=== PATIENT | female | born 1950 | race Caucasian/White ===

== ENCOUNTER 2018-05-24 09:05 | Emergency (ER) | payer MEDICARE, MEDICAID ==
--- NOTE | 2018-05-24 09:11 | Emergency Department Record ---
History of Present Illness - General Chief complaint: Pain Stated complaint: SLIPPED Time Seen by Provider: 05/24/18 09:08 Source: Patient Mode of Arrival: EMS Limitations: No limitations - History of Present Illness Initial comments: The patient was walking at [facility] with her walker and slipped and fell down onto her L hip. She denies hitting her head or any NOLAN, LOC, neck or back pain. She did possibly bump her R arm but that is not painful. Her only complaint is mild L hip pain. MD Complaint: Extremity pain Onset/Timin -: Minutes(s) - Related Data Home Medications Medication Instructions Recorded Confirmed Last Taken Albuterol Sulfate [Proair Hfa] 1 - 2 puff IH .EVERY 4-6 HOURS PRN 05/24/1805/24 Unknown Alendronate Sodium 70 mg PO WEEKLY 05/24/18 05/24/18 Unknown Apixaban [Eliquis] 2.5 mg PO BID 05/24/18 05/24/18 Unknown Ascorbic Acid [Vitamin C] 250 mg PO DAILY 05/24/18 05/24/18 Unknown Biotin 5,000 mcg PO DAILY 05/24/18 05/24/18 Unknown Clonazepam [Klonopin] 1 mg PO QHS 05/24/18 05/24/18 Unknown Clopidogrel Bisulfate [Clopidogrel] 75 mg PO DAILY 05/24/18 05/24/18 Unknown Esomeprazole Magnesium [Nexium] 20 mg PO DAILY 05/24/18 05/24/18 Unknown Gabapentin [Neurontin] 600 mg PO TID 05/24/18 05/24/18 Unknown Lamotrigine 25 mg PO BID 05/24/18 05/24/18 Unknown Lamotrigine 150 mg PO BID 05/24/18 05/24/18 Unknown Metoprolol Succinate [Toprol Xl] 25 mg PO DAILY 05/24/18 05/24/18 Unknown Montelukast Sodium 10 mg PO DAILY 05/24/18 05/24/18 Unknown Paroxetine HCl [Paxil] 1 tab PO DAILY 05/24/18 05/24/18 Unknown Ropinirole HCl [Requip] 0.5 mg PO QHS 05/24/18 05/24/18 Unknown Simvastatin [Zocor] 20 mg PO QHS 05/24/18 05/24/18 Unknown Temazepam [Restoril] 15 mg PO QHS 05/24/18 05/24/18 Unknown Allergies Allergy/AdvReac Type Severity Reaction Status Date / Time aspirin Allergy Unknown Unverified 08/16/13 10:13 clarithromycin Allergy Unknown Unverified 08/16/13 10:13 codeine Allergy Unknown Unverified 08/16/13 10:13 NSAIDS (Non-Steroidal Allergy Unknown Unverified 08/16/13 10:13 Anti-Inflamma Penicillins Allergy Unknown Unverified 08/16/13 10:13 Allergies: Allergy Unknown Uncoded 08/16/13 10:13 Latex Allergy: Allergy Unknown Uncoded 08/16/13 10:13 Review of Systems Constitutional: Denies: Chills, Fever Physical Exam - General General Appearance: Alert, Cooperative, No acute distress - Head Head exam: Atraumatic (There are NO signs of any head or neck trauma.), Normocephalic, Normal inspection - Eye Eye exam: Normal appearance, PERRL - Neck Neck exam: Normal inspection. negative: Tenderness - Respiratory Respiratory exam: Normal lung sounds bilaterally. negative: Respiratory distress - Cardiovascular Cardiovascular Exam: Regular rate, Normal rhythm, Normal heart sounds - Extremities Extremities exam: Normal inspection, Tenderness (Mild to the L hip.), Other ( There is no R arm pain or tenderness presently. She has normal R shoulder and elbow ROM with no pain.) - Neurological Neurological exam: Alert. negative: Motor sensory deficit Course - Reevaluation(s) Reevaluation #1: The patient is doing very well at this time. She denies any head pain but now does have mild neck pain. She again did deny hitting her head but since she has significant arthritis I did recommend a neck xray but the patient did refuse. I did explain to her that due to her significant arthritis she could easily have a neck fx with just excessive ROM of her neck. The patient does understand but is still refusing. She is up walking with no difficulty and only very minor L hip discomfort. 05/24/18 10:32 Reevaluation #2: I did re-examine the patient's head and neck and find no bruising, swelling, or ANY signs of trauma or tenderness. 05/24/18 10:36 Medical Decision Making - Data Complexity MDM Data: X-Ray Ordered and/or Reviewed - Radiology Data Radiology results: Report reviewed (L hip: Neg for acute changes.) Disposition Disposition: Discharge Clinical Impression: Contusion, hip and thigh Qualifiers: Encounter type: initial encounter Laterality: left Qualified Code(s): S70.02XA - Contusion of left hip, initial encounter Disposition: Home, Self-Care Condition: (2) Stable Instructions: Hip Sprain (ED) Additional Instructions: Please continue your regular pain medicines and see your family doctor if not better in 3 days. Return to the ER for any worsening symptoms. Forms: Patient Portal Access Time of Disposition: 10:36 Quality - Quality Measures Quality Measures: N/A - Blood Pressure Screening View Details: Yes Does Patient Have Any of the Following: No Blood Pressure Classification: Pre-Hypertensive BP Reading Systolic Measurement: 137 Diastolic Measurement: 63 Screening for High Blood Pressure: < Pre-Hypertensive BP, F/U Documented > [ G8950] Pre-Hypertensive Follow-up Interventions: Referral to alternative/primary care provider.
[2018-05-24] MEDS ORDERED: ACETAMINOPHEN 325 MG TAB PO ONE (09:13)
--- NOTE | 2018-05-25 12:26 | RADIOLOGY REPORT ---
EXAM: LEFT HIP WITH PELVIS HISTORY: LEFT HIP PAIN STATUS POST SLIP AND FALL. TECHNIQUE: An AP view of the pelvis and AP and lateral views of the left hip were obtained. Comparison: None. FINDINGS: The patient is status post internal fixation of the left femur. There is an old healed fracture within the mid shaft. An intramedullary adama is in place and is affixed with two screws distally and a femoral neck compression screw proximally. There is no acute fracture or dislocation. There are mild arthritic changes of the left hip. The bony pelvis appears intact. Chronic soft tissue calcifications are present within the gluteal regions bilaterally. IMPRESSION: 1. PREVIOUS INTERNAL FIXATION OF THE LEFT FEMUR. 2. NO ACUTE HIP OR PELVIC PATHOLOGY. JOB NUMBER: [id number] [facility]
== END 2018-05-24 11:00 | disposition home or self-care (01) ==
LOC: ER 09:05
DX: S70.02XA Contusion of left hip, initial encounter (principal); M54.2 Cervicalgia; W01.10XA Fall on same level from slipping, tripping and stumbling with subsequent striking against unspecified object, initial encounter; Y92.129 Unspecified place in nursing home as the place of occurrence of the external cause
CPT/HCPCS: 99283

== ENCOUNTER 2018-07-22 22:03 | Emergency (ER) | payer MEDICARE, MEDICAID ==
--- NOTE | 2018-07-22 22:26 | Emergency Department Record ---
History of Present Illness - General Chief Complaint: Back Pain/Injury Stated Complaint: BACK PAIN Time Seen by Provider: 07/22/18 22:21 Source: Patient - History of Present Illness Initial Comments: The patient was coughing hard and she began having sharp stabbing pain in her thoracic back. Now it hurts to take a deep breath. She was given a percocet with no relief at her nursing facility. She denies radiation down her legs, abdominal pain, neck or head pain. MD Complaint: Back pain Onset/Timin -: Hour(s) Similar Symptoms Previously: No Place: Home Radiation: None Severity scale (1-10): 10 Quality: Stabbing Consistency: Constant Improves With: Movement, Sitting upright Worsens With: Movement Associated Symptoms: Denies other symptoms Treatments Prior to Arrival: Other medications - Related Data Home Medications Medication Instructions Recorded Confirmed Last Taken Ergocalciferol (Vitamin D2) 50,000 unit PO WEEKLY 07/22/18 07/22/18 07/20/18 [Vitamin D2] Furosemide [Lasix] 20 mg PO [id number] 07/22/18 07/22/18 07/22/18 Furosemide [Lasix] 40 mg PO DAILY 07/22/18 07/22/18 07/22/18 Oxycodone HCl/Acetaminophen 1 each PO Q6H PRN 07/22/18 07/22/18 07/22/18 [Percocet 7.5mg/325mg] Allergies Allergy/AdvReac Type Severity Reaction Status Date / Time aspirin Allergy Unknown ANAPHYLAXIS Verified 07/22/18 22:47 clarithromycin Allergy Unknown ANAPHYLAXIS Verified 07/22/18 22:47 codeine Allergy Unknown ANAPHYLAXIS Verified 07/22/18 22:47 NSAIDS (Non-Steroidal Allergy Unknown ANAPHYLAXIS Verified 07/22/18 22:47 Anti-Inflamma Penicillins Allergy Unknown ANAPHYLAXIS Verified 07/22/18 22:47 Travel Screening - Travel/Exposure Within Last 30 Days Have you traveled within the last 30 days?: No - Travel/Exposure Within Last Year Have you traveled outside the [place] in the last year?: No - Additonal Travel Details Have you been exposed to anyone with a communicable illness?: No - Travel Symptoms Symptom Screening: None Review of Systems Reviewed: No additional complaints except as noted below Constitutional: Reports: As per HPI. Denies: Chills, Fever, Malaise, Night sweats, Weakness, Weight change Eyes: Reports: As per HPI. Denies: Eye discharge, Eye pain, Photophobia, Vision change ENT: Reports: As per HPI. Denies: Congestion, Dental pain, Ear pain, Epistaxis , Hearing loss, Throat pain Respiratory: Reports: As per HPI. Denies: Cough, Dyspnea, Hemoptysis, Stridor, Wheezes Cardiovascular: Reports: As per HPI. Denies: Arrhythmia, Chest pain, Dyspnea on exertion, Edema, Murmurs, Orthopnea, Palpitations, Paroxysmal nocturnal dyspnea, Rheumatic Fever, Syncope Endocrine: Reports: As per HPI. Denies: Fatigue, Heat or cold intolerance, Polydipsia, Polyuria Gastrointestinal: Reports: As per HPI. Denies: Abdominal pain, Constipation, Diarrhea, Hematemesis, Hematochezia, Melena, Nausea, Vomiting Genitourinary: Reports: As per HPI. Denies: Abnormal menses, Discharge, Dyspareunia, Dysuria, Frequency, Hematuria, Incontinence, Retention, Urgency Musculoskeletal: Reports: As per HPI. Denies: Arthralgia, Back pain, Gout, Joint swelling, Myalgia, Neck pain Skin: Reports: As per HPI. Denies: Bruising, Change in color, Change in hair/ nails, Lesions, Pruritus, Rash Neurological: Reports: As per HPI. Denies: Abnormal gait, Confusion, Headache, Numbness, Paresthesias, Seizure, Tingling, Tremors, Vertigo, Weakness Psychiatric: Reports: As per HPI. Denies: Anxiety, Auditory hallucinations, Depression, Homicidal thoughts, Suicidal thoughts, Visual hallucinations Hematological/Lymphatic: Reports: As per HPI. Denies: Anemia, Blood Clots, Easy bleeding, Easy bruising, Swollen glands Past Medical History - SOCIAL HISTORY Smoking Status: Never smoker Alcohol Use: None Drug Use: None - RESPIRATORY Hx Respiratory Disorders: Yes Hx Asthma: Yes Hx Bronchitis: Yes Hx COPD: Yes Hx Pneumonia: Yes - CARDIOVASCULAR Hx Cardio Disorders: Yes Hx Hypertension: Yes Comment:: heart murmur - NEURO Hx Neuro Disorders: No Hx Seizures: Yes (3 months ago.) - GI Hx GI Disorders: Yes Hx Hiatal Hernia: Yes - Hx Genitourinary Disorders: Yes Hx UTI: Yes - ENDOCRINE Hx Endocrine Disorders: No - MUSCULOSKELETAL Hx Musculoskeletal Disorders: Yes Hx Arthritis: Yes - PSYCH Hx Psych Problems: Yes Hx Anxiety: Yes Hx Depression: Yes - HEMATOLOGY/ONCOLOGY Hx Hematology/Oncology Disorders: No Hx Cancer: Yes Family Medical History Any Significant Family History?: Yes Hx Heart Disease: Father, Mother, Brother/Sister Hx HTN: Mother Physical Exam - General General Appearance: Alert, Oriented x3, Cooperative, Moderate distress - Head Head exam: Normal inspection - Eye Eye exam: Normal appearance, PERRL, EOMI. negative: Conjunctival injection, Nystagmus Pupils: Normal accommodation - ENT ENT exam: Normal exam, Mucous membranes moist, Normal external ear exam, Normal orophraynx, TM's normal bilaterally Ear exam: Normal external inspection. negative: External canal tenderness Nasal Exam: Normal inspection. negative: Discharge, Sinus tenderness Mouth exam: Normal external inspection, Tongue normal Teeth exam: Normal inspection. negative: Dental caries Throat exam: Normal inspection. negative: Tonsillar erythema, Tonsillar exudate - Neck Neck exam: Normal inspection, Full ROM. negative: Lymphadenopathy, Meningismus , Tenderness - Respiratory Respiratory exam: Normal lung sounds bilaterally. negative: Respiratory distress - Cardiovascular Cardiovascular Exam: Regular rate, Normal rhythm, Normal heart sounds - GI/Abdominal GI/Abdominal exam: Soft, Normal bowel sounds. negative: Tenderness - Rectal Rectal exam: Deferred - exam: Deferred - Extremities Extremities exam: Normal inspection, Full ROM, Normal capillary refill. negative: Tenderness - Back Back exam: Reports: Normal inspection, Full ROM, Vertebral tenderness (Tender over vertebral levels T5-T9, no lateral crepitance or sub Q emphysema; ). Denies: Muscle spasm, Rash noted, Tenderness - Neurological Neurological exam: Alert, CN II-XII intact, Normal gait, Oriented X3, Reflexes normal. negative: Motor sensory deficit - Psychiatric Psychiatric exam: Normal affect, Normal mood - Skin Skin exam: Dry, Intact, Normal color, Warm Course Vital Signs 07/22/18 07/22/18 22:07 22:08 Temperature 97.9 F Pulse Rate 66 Pulse Rate [ 67 Pulse Ox Probe] Respiratory 20 22 Rate Blood Pressure 135/65 Blood Pressure 135/65 [Left Arm] Pulse Ox 94 L 95 - Reevaluation(s) Reevaluation #1: Patient is sleeping. When awakened she states her pain level remains with "very little relief." She takes percocet 7.5 every 6 hours at the [facility]. 07/22/18 23:47 Reevaluation #2: The patient is sleeping unless we awaken her to talk to her. She then complains of how badly her back hurts. Percocet prescribed already at [facility]. 07/22/18 23:54 Medical Decision Making - Management Options MDM Management: No Additional Work-up Planned - Data Complexity MDM Data: X-Ray Ordered and/or Reviewed (CT thoracic spine: No acute fractures. Chronic changes.) Disposition Disposition: Discharge Clinical Impression: Strain of thoracic back region Disposition: Home, Self-Care Condition: (1) Good Instructions: Thoracic Back Strain (ED) Additional Instructions: Return to [facility]. Continue present medications. No lifting bending twisting. Continue your percocet as previously prescribed for pain control. Quality - Quality Measures Quality Measures: N/A - Blood Pressure Screening Does Patient Have Any of the Following: No Blood Pressure Classification: Pre-Hypertensive BP Reading Systolic Measurement: 135 Diastolic Measurement: 65 Screening for High Blood Pressure: < Pre-Hypertensive BP, F/U Documented > [ G8950] Pre-Hypertensive Follow-up Interventions: Follow-up with rescreen every year.
[2018-07-22] MEDS ORDERED: ORPHENADRINE CITRATE 60MG/2ML VIAL IM ONE (22:30)
--- NOTE | 2018-07-24 14:08 | CT SCAN REPORT ---
EXAM: CT OF THE THORACIC SPINE HISTORY: BACK PAIN. TECHNIQUE: Noncontrast CT images of the thoracic spine were obtained. FINDINGS: End plate deformity is present at multiple levels with a generalized kyphoscoliosis. Multiple areas of disk space narrowing are accompanied by osteophytosis. There is mild anterolisthesis of T2 upon T3 with accompanying facet degenerative change and disk space narrowing. Minimal T3 upon T4 and T4 upon T5 degenerative anterolisthesis is noted. No definite acute vertebral body injury is seen. There is no obvious spinal canal stenosis. No lytic or blastic lesions are seen. 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 IF SYMPTOMS PERSIST, MRI OF THE THORACIC SPINE IS SUGGESTED TO DETECT OCCULT FRACTURES. JOB NUMBER: [id number] [facility]
== END 2018-07-23 00:18 | disposition home or self-care (01) ==
LOC: ER 22:03
DX: S29.012A Strain of muscle and tendon of back wall of thorax, initial encounter (principal); X50.0XXA Overexertion from strenuous movement or load, initial encounter; Y92.129 Unspecified place in nursing home as the place of occurrence of the external cause; I10 Essential (primary) hypertension
CPT/HCPCS: 72128; 96372; 99283; 99284; J2360

== ENCOUNTER 2018-07-28 21:30 | Emergency (ER) | payer MEDICARE, MEDICAID ==
--- NOTE | 2018-07-28 21:40 | Emergency Department Record ---
History of Present Illness - General Chief Complaint: Fall Injury Stated Complaint: FALL Time Seen by Provider: 07/28/18 21:33 Source: Patient, EMS Mode of Arrival: EMS Limitations: No limitations - History of Present Illness Initial Comments: 68 yo female presents by EMS after a fall at [facility]. She was sitting in her wheelchair when the event occurred. EMS reports witnesses stated she was reaching for something and fell forward out of the chair from a sitting position. She rotated and hit her head. No LOC. She is on Eliquis. She did not have any LOC. She has chronic unchanged back pain that she states improved with stretching exercises today with her doctor. No extremity injury. No lacerations or bleeding. She is at her baseline fully alert and oriented. She does have mild headache and neck pain. MD Complaint: Fall -: Minutes(s) Fall From: Chair When Fall Occurred: Just prior to arrival Fall Witnessed: Yes, by living facility staff Place Fall Occurred: long-term/SNF Loss of Consciousness: None Prolonged Down Time?: No Symptoms Prior to Fall: None Location: Head Quality: Aching Context: History of frequent falls Associated Symptoms: Denies - [place] Coma Scale Eye Response: (4) Open spontaneously Motor Response: (6) Obeys commands Verbal Response: (5) Oriented [place] Total: 15 - Related Data Allergies Allergy/AdvReac Type Severity Reaction Status Date / Time aspirin Allergy Unknown ANAPHYLAXIS Verified 07/22/18 22:47 clarithromycin Allergy Unknown ANAPHYLAXIS Verified 07/22/18 22:47 codeine Allergy Unknown ANAPHYLAXIS Verified 07/22/18 22:47 NSAIDS (Non-Steroidal Allergy Unknown ANAPHYLAXIS Verified 07/22/18 22:47 Anti-Inflamma Penicillins Allergy Unknown ANAPHYLAXIS Verified 07/22/18 22:47 Review of Systems Constitutional: Denies: Chills, Fever, Malaise, Weakness Eyes: Denies: Eye discharge, Eye pain, Photophobia, Vision change ENT: Denies: Congestion, Dental pain, Throat pain Respiratory: Denies: Cough, Dyspnea Cardiovascular: Denies: Chest pain, Palpitations, Syncope Endocrine: Denies: Fatigue Gastrointestinal: Denies: Abdominal pain, Diarrhea, Nausea, Vomiting Genitourinary: Denies: Dysuria Musculoskeletal: Reports: Back pain (chronic). Denies: Arthralgia, Myalgia Skin: Reports: Bruising (from prior falls) Neurological: Reports: Headache (very mild). Denies: Confusion, Numbness, Tingling, Vertigo, Weakness Psychiatric: Denies: Anxiety Hematological/Lymphatic: Denies: Blood Clots, Easy bleeding, Easy bruising Past Medical History - SOCIAL HISTORY Smoking Status: Never smoker Drug Use: None - RESPIRATORY Hx Respiratory Disorders: Yes Hx Asthma: Yes Hx Bronchitis: Yes Hx COPD: Yes Hx Pneumonia: Yes - CARDIOVASCULAR Hx Cardio Disorders: Yes Hx Hypertension: Yes Comment:: heart murmur - NEURO Hx Neuro Disorders: No Hx Seizures: Yes (3 months ago.) - GI Hx GI Disorders: Yes Hx Hiatal Hernia: Yes - Hx Genitourinary Disorders: Yes Hx UTI: Yes - ENDOCRINE Hx Endocrine Disorders: No - MUSCULOSKELETAL Hx Musculoskeletal Disorders: Yes Hx Arthritis: Yes - PSYCH Hx Psych Problems: Yes Hx Anxiety: Yes Hx Depression: Yes - HEMATOLOGY/ONCOLOGY Hx Hematology/Oncology Disorders: No Hx Cancer: Yes Family Medical History Hx Heart Disease: Father, Mother, Brother/Sister Hx HTN: Mother Physical Exam - General General Appearance: Alert, Oriented x3, Cooperative, No acute distress Limitations: No limitations - Head Head exam: Atraumatic, Normocephalic, Normal inspection Head exam detail: negative: Abrasion, Contusion, Hematoma, Laceration - Eye Eye exam: Normal appearance, PERRL. negative: Conjunctival injection, Scleral icterus - ENT ENT exam: Normal exam, Mucous membranes moist Ear exam: Normal external inspection Nasal Exam: Normal inspection Mouth exam: Normal external inspection - Neck Neck exam: Normal inspection - Respiratory Respiratory exam: Normal lung sounds bilaterally. negative: Respiratory distress - Cardiovascular Cardiovascular Exam: Regular rate, Normal rhythm, Normal heart sounds - GI/Abdominal GI/Abdominal exam: Soft. negative: Normal bowel sounds, Distended, Rebound, Rigid, Tenderness - Rectal Rectal exam: Deferred - exam: Deferred - Extremities Extremities exam: Normal inspection, Full ROM. negative: Calf tenderness, Joint swelling, Normal capillary refill, Pedal edema, Tenderness - Back Back exam: Reports: Paraspinal tenderness. Denies: CVA tenderness (R), CVA tenderness (L), Vertebral tenderness - Neurological Neurological exam: Alert, CN II-XII intact, Oriented X3. negative: Altered, Motor sensory deficit - Psychiatric Psychiatric exam: Normal affect, Normal mood. negative: Agitated, Anxious - Skin Skin exam: Dry, Intact, Normal color, Warm Course - Reevaluation(s) Reevaluation #1: EMR reviewed CT of the T spine on 07/22/18 reviewed. DJD, Kyphosis, anteriolithesis (mild), no old or new fractures She states her back feels better today after seeing her doctor and doing stretching exercises 07/28/18 21:40 07/28/18 22:[address] was negative for acute process. 07/28/18 22:[address] was negative for acute injury. Extensive multilevel disease. R thyroid nodule noted with recommended US follow up. The patient was informed. Disposition Disposition: Discharge Clinical Impression: Fall Disposition: Home, Self-Care Condition: (1) Good Instructions: Fall Prevention for Older Adults (ED) Additional Instructions: Call your doctor for the next available follow up appointment Return to the ER for a recheck if worse, any new concerns or questions Review this ER visit and the tests performed with your family doctor The radiologist recommends a follow up ultrasound of the right thyroid nodule that was noted on your CT scan of the neck Forms: Patient Portal Access Time of Disposition: 22:46 Quality - Quality Measures Quality Measures: N/A - Blood Pressure Screening Does Patient Have Any of the Following: No Blood Pressure Classification: Normal BP Reading Systolic Measurement: 112 Diastolic Measurement: 60 Screening for High Blood Pressure: < Normal BP, F/U Not Required > [G8783]
--- NOTE | 2018-07-30 13:07 | CT SCAN REPORT ---
EXAM: CT SCAN OF THE BRAIN WITHOUT CONTRAST HISTORY: FELL AND HIT THE BACK OF THE HEAD. ON BLOOD THINNERS. TECHNIQUE: Standard CT imaging of the brain was performed in the axial plane without contrast. Additional coronal and sagittal reformatted images were also performed. Comparison: None. Encounter: Initial. FINDINGS: There is mild generalized atrophy. The ventricles and subarachnoid spaces are otherwise normal. Minor patchy areas of decreased attenuation are noted within the periventricular and subcortical white matter at both cerebral hemispheres. These likely reflect mild chronic small vessel ischemic changes. There is no mass, mass effect, intracranial hemorrhage, visible acute infarct, or abnormal extraaxial fluid. The skull is intact. A small mucous retention cyst is present within the left maxillary sinus. The sinuses and mastoids are otherwise clear. The orbits are unremarkable. IMPRESSION: 1. NO ACUTE INTRACRANIAL ABNORMALITY OR SKULL FRACTURE. 2. MILD ATROPHY AND CHRONIC SMALL VESSEL ISCHEMIC CHANGES. JOB NUMBER: [id number] [facility]
--- NOTE | 2018-07-30 13:13 | CT SCAN REPORT ---
EXAM: CT SCAN OF THE CERVICAL SPINE WITHOUT CONTRAST HISTORY: PATIENT FELL AND HIT THE BACK OF THE HEAD. ON BLOOD THINNERS. TECHNIQUE: Standard CT imaging of the cervical spine were performed in the axial plane without contrast. Additional coronal and sagittal reformatted images were also performed. Comparison: Previous CT scan of the thoracic spine dated 07/22/18. Encounter: Initial. FINDINGS: There is straightening of the cervical lordosis. There is severe disk space narrowing from the C5 through the T1 levels with associated end plate degenerative change. Facet arthropathy is present throughout. This is greatest at the C2-C3 level on the right. There is mild chronic appearing erosion of the articular surface of the right C2-C3 facet joint. There is no visible acute fracture or subluxation. The craniocervical and cervicothoracic junctions are normal. There is no gross central canal stenosis. Mild neural foraminal narrowing is present at multiple levels. There is a large nodule within the left thyroid lobe measuring approximately 4.2 x 3.5 cm. This displaces the trachea to the right. The remaining neck soft tissues appear normal. The lung apices are clear. IMPRESSION: 1. EXTENSIVE MULTILEVEL DEGENERATIVE DISK DISEASE AND FACET ARTHROPATHY. 2. NO ACUTE CERVICAL SPINE PATHOLOGY. 3. LARGE LEFT THYROID NODULE. A FOLLOW-UP THYROID ULTRASOUND IS RECOMMENDED FOR FURTHER CHARACTERIZATION. JOB NUMBER: [id number] [facility]
== END 2018-07-28 23:14 | disposition home or self-care (01) ==
LOC: ER 21:30
DX: S09.90XA Unspecified injury of head, initial encounter (principal); R51 Headache; M54.6 Pain in thoracic spine; M54.2 Cervicalgia; W05.0XXA Fall from non-moving wheelchair, initial encounter; Y92.129 Unspecified place in nursing home as the place of occurrence of the external cause; Z91.81 History of falling; E04.1 Nontoxic single thyroid nodule; J44.9 Chronic obstructive pulmonary disease, unspecified; I10 Essential (primary) hypertension; Z79.01 Long term (current) use of anticoagulants
CPT/HCPCS: 70450; 72125; 99284

== ENCOUNTER 2018-09-13 07:54 | Emergency (ER) | payer MEDICARE, MEDICAID ==
--- NOTE | 2018-09-13 08:26 | Emergency Department Record ---
History of Present Illness - General Chief Complaint: Trauma Stated Complaint: FALL Time Seen by Provider: 09/13/18 08:00 Source: Patient Mode of Arrival: EMS Limitations: No limitations - History of Present Illness Initial Comments: pt fell while bent over pulling her pants on. she hit her head Complaint: Fall Onset/Timin -: Minutes(s) Loss of Consciousness: Yes Location: Head Location - Extremities: Left: Hand, Right: Elbow Consistency: Constant Associated Symptoms: Denies other symptoms, Headaches - Related Data Allergies Allergy/AdvReac Type Severity Reaction Status Date / Time aspirin Allergy Unknown ANAPHYLAXIS Verified 07/22/18 22:47 clarithromycin Allergy Unknown ANAPHYLAXIS Verified 07/22/18 22:47 codeine Allergy Unknown ANAPHYLAXIS Verified 07/22/18 22:47 NSAIDS (Non-Steroidal Allergy Unknown ANAPHYLAXIS Verified 07/22/18 22:47 Anti-Inflamma Penicillins Allergy Unknown ANAPHYLAXIS Verified 07/22/18 22:47 Travel Screening - Travel/Exposure Within Last 30 Days Have you traveled within the last 30 days?: No - Travel/Exposure Within Last Year Have you traveled outside the [place] in the last year?: No - Additonal Travel Details Have you been exposed to anyone with a communicable illness?: No - Travel Symptoms Symptom Screening: None Review of Systems Reviewed: No additional complaints except as noted below Constitutional: Reports: As per HPI. Denies: Chills, Fever, Malaise, Night sweats, Weakness, Weight change Eyes: Reports: As per HPI. Denies: Eye discharge, Eye pain, Photophobia, Vision change ENT: Reports: As per HPI. Denies: Congestion, Dental pain, Ear pain, Epistaxis, Hearing loss, Throat pain Respiratory: Reports: As per HPI. Denies: Cough, Dyspnea, Hemoptysis, Stridor, Wheezes Cardiovascular: Reports: As per HPI. Denies: Arrhythmia, Chest pain, Dyspnea on exertion, Edema, Murmurs, Orthopnea, Palpitations, Paroxysmal nocturnal dyspnea, Rheumatic Fever, Syncope Endocrine: Reports: As per HPI. Denies: Fatigue, Heat or cold intolerance, Polydipsia, Polyuria Gastrointestinal: Reports: As per HPI. Denies: Abdominal pain, Constipation, Di arrhea, Hematemesis, Hematochezia, Melena, Nausea, Vomiting Genitourinary: Reports: As per HPI. Denies: Abnormal menses, Discharge, Dyspareunia, Dysuria, Frequency, Hematuria, Incontinence, Retention, Urgency Musculoskeletal: Reports: As per HPI. Denies: Arthralgia, Back pain, Gout, Joint swelling, Myalgia, Neck pain Skin: Reports: As per HPI. Denies: Bruising, Change in color, Change in hair/nails, Lesions, Pruritus, Rash Neurological: Reports: As per HPI. Denies: Abnormal gait, Confusion, Headache, Numbness, Paresthesias, Seizure, Tingling, Tremors, Vertigo, Weakness Psychiatric: Reports: As per HPI. Denies: Anxiety, Auditory hallucinations, Depression, Homicidal thoughts, Suicidal thoughts, Visual hallucinations Hematological/Lymphatic: Reports: As per HPI. Denies: Anemia, Blood Clots, Easy bleeding, Easy bruising, Swollen glands Past Medical History - SOCIAL HISTORY Smoking Status: Never smoker Alcohol Use: None Drug Use: None - RESPIRATORY Hx Respiratory Disorders: Yes Hx Asthma: Yes Hx Bronchitis: Yes Hx COPD: Yes Hx Pneumonia: Yes - CARDIOVASCULAR Hx Cardio Disorders: Yes Hx Hypertension: Yes Comment:: heart murmur - NEURO Hx Neuro Disorders: No Hx Seizures: Yes (3 months ago.) - GI Hx GI Disorders: Yes Hx Hiatal Hernia: Yes - Hx Genitourinary Disorders: Yes Hx UTI: Yes - ENDOCRINE Hx Endocrine Disorders: No - MUSCULOSKELETAL Hx Musculoskeletal Disorders: Yes Hx Arthritis: Yes - PSYCH Hx Psych Problems: Yes Hx Anxiety: Yes Hx Depression: Yes - HEMATOLOGY/ONCOLOGY Hx Hematology/Oncology Disorders: No Hx Cancer: Yes Family Medical History Any Significant Family History?: No Hx Heart Disease: Father, Mother, Brother/Sister Hx HTN: Mother Physical Exam - General General Appearance: Alert, Oriented x3, Cooperative, Mild distress - Head Head exam: Normal inspection Head exam detail: Contusion, Hematoma - Eye Eye exam: Normal appearance, PERRL, EOMI Pupils: Normal accommodation - ENT ENT exam: Normal exam, Mucous membranes moist, Normal external ear exam, Normal orophraynx, TM's normal bilaterally Ear exam: Normal external inspection. negative: External canal tenderness Nasal Exam: Normal inspection. negative: Discharge, Sinus tenderness Mouth exam: Normal external inspection, Tongue normal Teeth exam: Normal inspection. negative: Dental caries Throat exam: Normal inspection. negative: Tonsillar erythema, Tonsillar exudate - Neck Neck exam: Normal inspection, Full ROM. negative: Tenderness - Respiratory Respiratory exam: Normal lung sounds bilaterally. negative: Respiratory distress - Cardiovascular Cardiovascular Exam: Regular rate, Normal rhythm, Normal heart sounds - GI/Abdominal GI/Abdominal exam: Soft, Normal bowel sounds. negative: Tenderness - Rectal Rectal exam: Deferred - exam: Deferred - Extremities Extremities exam: Normal inspection, Full ROM, Normal capillary refill. negative: Tenderness - Back Back exam: Reports: Normal inspection, Full ROM. Denies: Muscle spasm, Rash noted, Tenderness - Neurological Neurological exam: Alert, CN II-XII intact, Normal gait, Oriented X3 - Psychiatric Psychiatric exam: Normal affect, Normal mood - Skin Skin exam: Dry, Intact, Normal color, Warm Course Vital Signs 09/13/18 08:05 Pulse Rate 70 Respiratory 16 Rate Blood Pressure 134/70 Pulse Ox 97 - Reevaluation(s) Reevaluation #1: 09/13/18 09:55 cts and xrays neg for acute Disposition Disposition: Discharge Clinical Impression: Head injury Qualifiers: Encounter type: initial encounter Qualified Code(s): S09.90XA - Unspecified injury of head, initial encounter Disposition: Home, Self-Care Condition: (1) Good Instructions: Head Injury (ED) Additional Instructions: follow up with family doctor. return sooner if worse Forms: Patient Portal Access Quality - Quality Measures Quality Measures: N/A - Blood Pressure Screening Does Patient Have Any of the Following: No Blood Pressure Classification: Pre-Hypertensive BP Reading Systolic Measurement: 134 Diastolic Measurement: 70 Screening for High Blood Pressure: < Pre-Hypertensive BP, F/U Documented > [G8950] Pre-Hypertensive Follow-up Interventions: Follow-up with rescreen every year.
[2018-09-13] MEDS ORDERED: HYDROCODONE/APAP 5/325MG TABLET PO ONE (09:35)
--- NOTE | 2018-09-16 05:51 | CT SCAN REPORT ---
EXAM: CT SCAN HEAD WO CONTRAST HISTORY: PATIENT FELL, HIT HEAD ON FLOOR. PRIOR STROKE THREE YEARS AGO. TECHNIQUE: Axial CT scan of the head performed without IV contrast. COMPARISON: Head CT, 07/28/18. ENCOUNTER: Initial. FINDINGS: No definite acute intracranial hemorrhage identified. No focal mass effect or midline shift evident. Prominent generalized atrophy with chronic- appearing deep white matter changes as before, nonspecific but likely representing some chronic small vessel deep white matter ischemic disease. No definite acute infarct or intracranial mass lesion seen. Some soft tissue swelling in the scalp high in the parietal region slightly to the left of midline. No depressed calvarial fracture evident. Cyst or polyp in the floor of the left maxillary antrum. IMPRESSION: 1. GENERALIZED ATROPHY WITH CHRONIC-APPEARING DEEP WHITE MATTER CHANGES BEFORE. 2. NO ACUTE INTRACRANIAL HEMORRHAGE OR FOCAL MASS EFFECT EVIDENT. 3. CYST OR POLYP, FLOOR OF LEFT MAXILLARY SINUS. 4. SOFT TISSUE SWELLING IN THE SCALP HIGH IN THE LEFT PARAMEDIAN PARIETAL MACO. JOB NUMBER: [id number] MTDD
--- NOTE | 2018-09-16 05:58 | CT SCAN REPORT ---
EXAM: CT SCAN CERVICAL SPINE WO CONTRAST HISTORY: PATIENT FELL. TECHNIQUE: Axial CT scan of the entire cervical spine performed without IV contrast. COMPARISON: Cervical CT, 07/28/18. ENCOUNTER: Initial. FINDINGS: Cyst or polyp floor of the left maxillary antrum. No apical pneumothorax evident. No definite fracture of the cervical spine identified. No prevertebral soft tissue swelling seen. Diffuse degenerative changes again noted with narrowing of the fifth through the seventh cervical interspaces similar to before. Multilevel facet joint arthropathy. Large left lobe thyroid nodule again seen previously measured at about 4.2 x 3.5 cm and appearing essentially unchanged today at about 4.1 x 3.4 cm. This causes some deviation of the trachea to the right as before. Recommend correlation with prior work-up. IMPRESSION: 1. NO DEFINITE FRACTURE OR PREVERTEBRAL SOFT TISSUE SWELLING SEEN IN THE CERVICAL SPINE. 2. MULTILEVEL DEGENERATIVE CHANGE IN THE CERVICAL SPINE AGAIN EVIDENT. 3. LARGE LEFT LOBE THYROID NODULE CAUSING DEVIATION OF THE TRACHEA TO THE RIGHT BEFORE. RECOMMEND CORRELATION WITH PRIOR WORK-UP. JOB NUMBER: [id number] MTDD
--- NOTE | 2018-09-16 06:01 | RADIOLOGY REPORT ---
EXAM: LUMBAR SPINE / AP LAT HISTORY: PATIENT FELL WITH BACK PAIN. TECHNIQUE: AP and lateral views, lumbar spine. COMPARISON: None. ENCOUNTER: Initial. FINDINGS: Diffuse osteopenia consistent with osteoporosis. Postop changes proximal left femur. Advanced degenerative disc disease at the L4-5 and L5-S1 interspaces with associated hypertrophic spurring. Facet joint arthropathy in the lower lumbar spine. Postop changes posteriorly in the mid to lower lumbar spine. There is probably some chain suture in the left side of the abdomen as well. No definite acute fracture of the lumbar spine identified. Extensive vascular calcification. IMPRESSION: 1. ADVANCED DEGENERATIVE DISC DISEASE AT THE LOWER TWO LUMBAR INTERSPACES. 2. NO DEFINITE FRACTURE OF THE LUMBAR SPINE IDENTIFIED. 3. POSTOP CHANGES OVERLYING THE BACK POSTERIORLY. POSTOP CHANGES AT THE LEFT HIP AND LEFT SIDE OF THE ABDOMEN WELL. JOB NUMBER: [id number] MTDD
== END 2018-09-13 10:18 | disposition home or self-care (01) ==
LOC: ER 07:54
DX: S09.90XA Unspecified injury of head, initial encounter (principal); M79.642 Pain in left hand; M25.521 Pain in right elbow; R51 Headache; I10 Essential (primary) hypertension; J44.9 Chronic obstructive pulmonary disease, unspecified; W19.XXXA Unspecified fall, initial encounter; Y92.121 Bathroom in nursing home as the place of occurrence of the external cause; Z79.01 Long term (current) use of anticoagulants
CPT/HCPCS: 70450; 72100; 72125; 99284

== ENCOUNTER 2018-10-10 23:35 | Emergency (ER) | payer MEDICARE, MEDICAID ==
--- NOTE | 2018-10-10 23:52 | Emergency Department Record ---
History of Present Illness - General Chief Complaint: Fall Injury Stated Complaint: FALL Time Seen by Provider: 10/10/18 23:37 Source: Patient Mode of Arrival: EMS Limitations: No limitations - History of Present Illness Initial Comments: The patient has a hx of frequent falls and was sitting in a chair and fell asleep and slipped forward and hit her head on the corner of a desk drawer. She had no LOC and no new neck pain after but did develop a mild NOLAN and nausea. The patient does take Plavix and Eliquis. She denies any vomiting, confusion, or neck or back pain. She also denies any arm or leg pain. The patient also does not have any lacerations, confusion, or abdominal pain and is answering questions appropriately. MD Complaint: Fall Onset/Timin -: Hour(s) Fall From: Chair When Fall Occurred: Just prior to arrival Fall Witnessed: No Place Fall Occurred: Home Loss of Consciousness: None Prolonged Down Time?: No Symptoms Prior to Fall: None Location: Head Severity: Moderate Severity scale (1-10): 8 Quality: Aching Context: History of frequent falls - [place] Coma Scale Eye Response: (4) Open spontaneously Motor Response: (6) Obeys commands Verbal Response: (5) Oriented [place] Total: 15 - Related Data Home Medications Medication Instructions Recorded Confirmed Last Taken Fluticasone/Salmeterol [Advair 1 puff INH BID 10/10/18 10/10/18 Unknown 250-50 Diskus] Allergies Allergy/AdvReac Type Severity Reaction Status Date / Time aspirin Allergy Unknown ANAPHYLAXIS Verified 07/22/18 22:47 clarithromycin Allergy Unknown ANAPHYLAXIS Verified 07/22/18 22:47 codeine Allergy Unknown ANAPHYLAXIS Verified 07/22/18 22:47 NSAIDS (Non-Steroidal Allergy Unknown ANAPHYLAXIS Verified 07/22/18 22:47 Anti-Inflamma Penicillins Allergy Unknown ANAPHYLAXIS Verified 07/22/18 22:47 Travel Screening - Travel/Exposure Within Last 30 Days Have you traveled within the last 30 days?: No - Travel/Exposure Within Last Year Have you traveled outside the [place] in the last year?: No - Additonal Travel Details Have you been exposed to anyone with a communicable illness?: No - Travel Symptoms Symptom Screening: None Review of Systems Constitutional: Denies: Chills, Fever Eyes: Denies: Eye discharge ENT: Denies: Congestion Respiratory: Denies: Cough Cardiovascular: Denies: Arrhythmia, Chest pain Endocrine: Denies: Fatigue Gastrointestinal: Denies: Nausea Genitourinary: Denies: Dysuria Musculoskeletal: Reports: Back pain (chronic.). Denies: Arthralgia Skin: Denies: Bruising Past Medical History - SOCIAL HISTORY Smoking Status: Never smoker Alcohol Use: None Drug Use: None - RESPIRATORY Hx Respiratory Disorders: Yes Hx Asthma: Yes Hx Bronchitis: Yes Hx COPD: Yes Hx Pneumonia: Yes - CARDIOVASCULAR Hx Cardio Disorders: Yes Hx Hypertension: Yes Comment:: heart murmur - NEURO Hx Neuro Disorders: No Hx Seizures: Yes (3 months ago.) - GI Hx GI Disorders: Yes Hx Hiatal Hernia: Yes - Hx Genitourinary Disorders: Yes Hx UTI: Yes - ENDOCRINE Hx Endocrine Disorders: No - MUSCULOSKELETAL Hx Musculoskeletal Disorders: Yes Hx Arthritis: Yes - PSYCH Hx Psych Problems: Yes Hx Anxiety: Yes Hx Depression: Yes - HEMATOLOGY/ONCOLOGY Hx Hematology/Oncology Disorders: No Hx Cancer: Yes Family Medical History Any Significant Family History?: Yes Hx Heart Disease: Father, Mother, Brother/Sister Hx HTN: Mother Physical Exam - General General Appearance: Alert, Oriented x3, Cooperative, No acute distress - Head Head exam: negative: Atraumatic, Normal inspection (There is a small hematoma to the L parietal skull area with mild tenderness.) - Eye Eye exam: Normal appearance, PERRL, EOMI - ENT Throat exam: Normal inspection. negative: Tonsillar erythema, Tonsillar exudate - Neck Neck exam: Normal inspection, Full ROM. negative: Tenderness - Respiratory Respiratory exam: Normal lung sounds bilaterally. negative: Respiratory distress - Cardiovascular Cardiovascular Exam: Regular rate, Normal rhythm, Normal heart sounds. negative: Irregular rhythm - GI/Abdominal GI/Abdominal exam: Soft, Normal bowel sounds. negative: Tenderness - Extremities Extremities exam: Normal inspection, Full ROM, Normal capillary refill. negative: Tenderness - Back Back exam: Reports: Normal inspection. Denies: Vertebral tenderness - Neurological Neurological exam: Alert, Oriented X3. negative: Altered, Motor sensory deficit - Psychiatric Psychiatric exam: negative: Anxious Course Vital Signs 10/10/18 23:37 Temperature 97.8 F Pulse Rate 71 Respiratory 20 Rate Blood Pressure 139/66 Pulse Ox 98 - Reevaluation(s) Reevaluation #1: The patient is doing very well at this time. She has a mild NOLAN but no confusion, nausea, vomiting, or speech difficulties. I did discuss the CT results with the patient at length and did recommend urgent follow up due to the L thyroid mass. The patient assures me she will see her family doctor for this. We also will send copies of the xrays with the patient for the staff to help the patient make her F/U appointments. Due to the patient being on 2 blood thinners we will recommend holding the medicines for 3 days. 10/11/18 00:39 Medical Decision Making - Data Complexity MDM Data: X-Ray Ordered and/or Reviewed - Radiology Data Radiology results: Report reviewed (Head CT: Neg for any acute changes. Cervical CT: neg for any acute changes, Left sided thyroid mass measuring at le ast 4.4 cm.) Disposition Disposition: Discharge Clinical Impression: Head injury Qualifiers: Encounter type: initial encounter Qualified Code(s): S09.90XA - Unspecified injury of head, initial encounter Fall Qualifiers: Encounter type: initial encounter Qualified Code(s): W19.XXXA - Unspecified fall, initial encounter Condition: (2) Stable Instructions: Fall Prevention for Older Adults (ED), Head Injury (ED) Additional Instructions: Please continue your regular medicines but do not take your Eliquis or Plavix for 3 days. Please see your family doctor for recheck this week to have the large thyroid mass evaluated further. Please return to the ER for any worsening symptoms, head pain, vomiting, or confusion. Forms: Patient Portal Access Time of Disposition: 00:43 Quality - Quality Measures Quality Measures: Blunt Head Trauma (>2yr) - Blunt Head Trauma - Adult Quality Measure: Measure #415: Utilization of CT for Minor Blunt Head Trauma ICD10 Codes Entered: Yes View Details: Yes Was CT ordered: Yes Does Patient Have Any of the Following: Taking Antiplatelet Med [place] Score: Please complete [place] Coma Scale above Utilization of CT for Minor Blunt Head Trauma: Patient Excluded [G9531] - Blood Pressure Screening View Details: Yes Does Patient Have Any of the Following: No Blood Pressure Classification: Pre-Hypertensive BP Reading Systolic Measurement: 139 Diastolic Measurement: 66 Screening for High Blood Pressure: < Pre-Hypertensive BP, F/U Documented > [G8950] Pre-Hypertensive Follow-up Interventions: Referral to alternative/primary care provider.
[2018-10-11] MEDS ORDERED: ACETAMINOPHEN 325 MG TAB PO ONE (00:36)
--- NOTE | 2018-10-12 21:07 | CT SCAN REPORT ---
EXAM: CT SCAN HEAD WO CONTRAST HISTORY: FALL HITTING LEFT SIDE OF HEAD ON DESK. PAIN, SWELLING, AND BRUISING ON LEFT SIDE OF HEAD. TECHNIQUE: Routine noncontrast CT of the brain. COMPARISON: CT brain without contrast dated 09/13/2018. FINDINGS: The subarachnoid spaces remain dilated consistent with atrophy. The ventricles are not enlarged. No new area of abnormally increased or decreased attenuation is noted throughout the brain substance. Minor white matter lucencies again noted in each cerebral hemisphere consistent with chronic small vessel ischemia. A prominent perivascular space vs. lacunar infarct is again noted in the left parietal white matter. No abnormal extraaxial fluid collection. No skull fracture. The visualized paranasal sinuses and mastoid air cells are clear. The orbits as visualized are unremarkable. There is a small cephalohematoma involving the left parietal scalp. IMPRESSION: 1. NO ACUTE INTRACRANIAL ABNORMALITY NOR SKULL FRACTURE WITHOUT CHANGE IN APPEARANCE OF THE BRAIN SINCE 09/13/2018. 2. MILD ATROPHY. MINOR WHITE MATTER LUCENCIES IN EACH CEREBRAL HEMISPHERE ARE NONSPECIFIC BUT LIKELY AREAS OF CHRONIC SMALL VESSEL ISCHEMIA. 3. SMALL CEPHALOHEMATOMA IN THE LEFT PARIETAL SCALP. JOB NUMBER: [id number] [facility]
--- NOTE | 2018-10-12 22:01 | CT SCAN REPORT ---
EXAM: CT SCAN CERVICAL SPINE WO CONTRAST HISTORY: FALL HITTING LEFT SIDE OF HEAD. TECHNIQUE: Thin-collimation helical CT examination of the cervical spine is performed in the axial plane without intravenous contrast. Coronal and sagittal reformatted images are generated and reviewed. COMPARISON: CT of the cervical spine without contrast dated 09/13/2018. FINDINGS: Diffuse osteopenia limits evaluation. There is again noted reversal of the normal cervical lordosis centered at the C6-C7 level. There is minimal anterolisthesis of C4 on C5. This is stable. The vertebral bodies are otherwise normal in alignment and height. The craniocervical junction appears intact. No acute fracture, destructive bone lesion, or prevertebral soft tissue swelling. Moderate hypertrophic changes of the atlantodental joint redemonstrated. Multilevel degenerative disc/degenerative endplate changes are identified, most pronounced at the C5-C6, C6-C7, and C7-T1 levels, where the changes are moderate to advanced. There does appear to be partial fusion of C7 and T1 vertebral bodies. Multilevel bilateral facet arthropathy is present, most pronounced at the upper levels, where the changes are moderate to advanced. The advanced degenerative changes of the right C2-C3 facet joint appear to include erosions. This is, however, stable. Multilevel bilateral neural foraminal narrowing is redemonstrated, primarily mild in degree and most pronounced at the lower levels secondary to uncovertebral joint and facet joint spurring. No new cervical mass nor adenopathy. There is again noted mass-like enlargement of the left thyroid lobe causing rightward displacement of the trachea. This measures at least 4.4 x 3.5 x 3.7 cm. It is unchanged. It is of indeterminate etiology. If not already performed, thyroid ultrasound is recommended. Atherosclerotic calcification of the carotid bifurcations is redemonstrated. Mild biapical lung scarring persists. IMPRESSION: 1. DIFFUSE OSTEOPENIA LIMITS EVALUATION. 2. MULTILEVEL DEGENERATIVE CHANGES, DISCUSSED ABOVE, GROSSLY STABLE SINCE 09/13/2018. 3. LARGE LEFT THYROID LOBE MASS REDEMONSTRATED WITH MILD RIGHTWARD DEVIATION OF THE TRACHEA. THIS REMAINS OF INDETERMINATE ETIOLOGY. THYROID ULTRASOUND, IF NOT ALREADY PERFORMED, IS RECOMMENDED. JOB NUMBER: [id number] MTDD
== END 2018-10-11 00:53 ==
LOC: ER 23:35
DX: S09.90XA Unspecified injury of head, initial encounter (principal); R51 Headache; E07.9 Disorder of thyroid, unspecified; R11.0 Nausea; J44.9 Chronic obstructive pulmonary disease, unspecified; W07.XXXA Fall from chair, initial encounter; Y92.129 Unspecified place in nursing home as the place of occurrence of the external cause; I10 Essential (primary) hypertension; Z79.01 Long term (current) use of anticoagulants; Z91.81 History of falling
CPT/HCPCS: 70450; 72125; 99283; 99284

== ENCOUNTER 2018-12-10 12:14 | Emergency (ER) | payer MEDICARE, MEDICAID ==
--- NOTE | 2018-12-10 13:57 | Emergency Department Record ---
History of Present Illness - General Chief Complaint: Altered Mental Status Stated Complaint: CONFUSED S/P SURGERY Time Seen by Provider: 12/10/18 13:03 Source: Patient, Family Mode of Arrival: Ambulatory Limitations: No limitations - History of Present Illness Initial Comments: pt had surgery on her arm yesterday and then had increased confusion this am. Complaint: Confusion Onset/Timin -: Days(s) Severity: Mild Consistency: Now resolved Associated Symptoms: Denies other symptoms - Related Data Previous Rx's Medication Instructions Recorded Cephalexin [Keflex] 500 mg PO TID #21 cap 12/10/18 Allergies Allergy/AdvReac Type Severity Reaction Status Date / Time aspirin Allergy Unknown ANAPHYLAXIS Verified 12/10/18 13:01 clarithromycin Allergy Unknown ANAPHYLAXIS Verified 12/10/18 13:01 codeine Allergy Unknown ANAPHYLAXIS Verified 12/10/18 13:01 NSAIDS (Non-Steroidal Allergy Unknown ANAPHYLAXIS Verified 12/10/18 13:01 Anti-Inflamma Penicillins Allergy Unknown ANAPHYLAXIS Verified 12/10/18 13:01 Travel Screening - Travel/Exposure Within Last 30 Days Have you traveled within the last 30 days?: No - Travel/Exposure Within Last Year Have you traveled outside the [place] in the last year?: No - Additonal Travel Details Have you been exposed to anyone with a communicable illness?: No - Travel Symptoms Symptom Screening: None Review of Systems Reviewed: No additional complaints except as noted below Constitutional: Reports: As per HPI. Denies: Chills, Fever, Malaise, Night sweats, Weakness, Weight change Eyes: Reports: As per HPI. Denies: Eye discharge, Eye pain, Photophobia, Vision change ENT: Reports: As per HPI. Denies: Congestion, Dental pain, Ear pain, Epistaxis, Hearing loss, Throat pain Respiratory: Reports: As per HPI. Denies: Cough, Dyspnea, Hemoptysis, Stridor, Wheezes Cardiovascular: Reports: As per HPI. Denies: Arrhythmia, Chest pain, Dyspnea on exertion, Edema, Murmurs, Orthopnea, Palpitations, Paroxysmal nocturnal dyspnea, Rheumatic Fever, Syncope Endocrine: Reports: As per HPI. Denies: Fatigue, Heat or cold intolerance, Polydipsia, Polyuria Gastrointestinal: Reports: As per HPI. Denies: Abdominal pain, Constipation, Diarrhea, Hematemesis, Hematochezia, Melena, Nausea, Vomiting Genitourinary: Reports: As per HPI. Denies: Abnormal menses, Discharge, Dyspareunia, Dysuria, Frequency, Hematuria, Incontinence, Retention, Urgency Musculoskeletal: Reports: As per HPI. Denies: Arthralgia, Back pain, Gout, J oint swelling, Myalgia, Neck pain Skin: Reports: As per HPI. Denies: Bruising, Change in color, Change in hair/nails, Lesions, Pruritus, Rash Neurological: Reports: As per HPI. Denies: Abnormal gait, Confusion, Headache, Numbness, Paresthesias, Seizure, Tingling, Tremors, Vertigo, Weakness Psychiatric: Reports: As per HPI. Denies: Anxiety, Auditory hallucinations, Depression, Homicidal thoughts, Suicidal thoughts, Visual hallucinations Hematological/Lymphatic: Reports: As per HPI. Denies: Anemia, Blood Clots, Easy bleeding, Easy bruising, Swollen glands Past Medical History - SOCIAL HISTORY Smoking Status: Never smoker Alcohol Use: None Drug Use: None - RESPIRATORY Hx Respiratory Disorders: Yes Hx Asthma: Yes Hx Bronchitis: Yes Hx COPD: Yes Hx Pneumonia: Yes - CARDIOVASCULAR Hx Cardio Disorders: Yes Hx Hypertension: Yes Comment:: heart murmur - NEURO Hx Neuro Disorders: No Hx Seizures: Yes (3 months ago.) - GI Hx GI Disorders: Yes Hx Hiatal Hernia: Yes - Hx Genitourinary Disorders: Yes Hx UTI: Yes - ENDOCRINE Hx Endocrine Disorders: No - MUSCULOSKELETAL Hx Musculoskeletal Disorders: Yes Hx Arthritis: Yes - PSYCH Hx Psych Problems: Yes Hx Anxiety: Yes Hx Depression: Yes - HEMATOLOGY/ONCOLOGY Hx Hematology/Oncology Disorders: No Hx Cancer: Yes Family Medical History Any Significant Family History?: Yes Hx Heart Disease: Father, Mother, Brother/Sister Hx HTN: Mother Physical Exam - General General Appearance: Alert, Oriented x3, Cooperative, Mild distress - Head Head exam: Normal inspection - Eye Eye exam: Normal appearance, PERRL, EOMI Pupils: Normal accommodation - ENT ENT exam: Normal exam, Mucous membranes moist, Normal external ear exam, Normal orophraynx, TM's normal bilaterally Ear exam: Normal external inspection. negative: External canal tenderness Nasal Exam: Normal inspection. negative: Discharge, Sinus tenderness Mouth exam: Normal external inspection, Tongue normal Teeth exam: Normal inspection. negative: Dental caries Throat exam: Normal inspection. negative: Tonsillar erythema, Tonsillar exudate - Neck Neck exam: Normal inspection, Full ROM. negative: Tenderness - Respiratory Respiratory exam: Normal lung sounds bilaterally. negative: Respiratory distress - Cardiovascular Cardiovascular Exam: Regular rate, Normal rhythm, Normal heart sounds - GI/Abdominal GI/Abdominal exam: Soft, Normal bowel sounds. negative: Tenderness - Rectal Rectal exam: Deferred - exam: Deferred - Extremities Extremities exam: Normal inspection, Full ROM, Normal capillary refill. negative: Tenderness - Back Back exam: Reports: Normal inspection, Full ROM. Denies: Muscle spasm, Rash noted, Tenderness - Neurological Neurological exam: Alert, CN II-XII intact, Normal gait, Oriented X3 - Psychiatric Psychiatric exam: Normal affect, Normal mood - Skin Skin exam: Dry, Intact, Normal color, Warm Course Vital Signs 12/10/18 13:11 Temperature 98.3 F Pulse Rate 110 H Respiratory 20 Rate Blood Pressure 129/85 Pulse Ox 97 i - Reevaluation(s) Reevaluation #1: 12/10/18 14:38 there is an area of slight erythema proximal to surgical sight. pts mentation has improved Medical Decision Making - Lab Data Result diagrams: 12/10/18 14:00 12/10/18 14:00 Disposition Disposition: Discharge Clinical Impression: Confusion Cellulitis Qualifiers: Site of cellulitis: extremity Site of cellulitis of extremity: upper extremity Laterality: right Qualified Code(s): L03.113 - Cellulitis of right upper limb Anemia Qualifiers: Anemia type: unspecified type Qualified Code(s): D64.9 - Anemia, unspecified Disposition: Home, Self-Care Condition: (1) Good Instructions: Altered Mental Status (ED), Anemia (ED), Cellulitis (ED) Additional Instructions: follow up with family doctor. return sooner if worse Prescriptions: Cephalexin [Keflex] 500 mg PO TID #21 cap Forms: Patient Portal Access Quality - Quality Measures Quality Measures: N/A - Blood Pressure Screening Does Patient Have Any of the Following: No Blood Pressure Classification: Pre-Hypertensive BP Reading Systolic Measurement: 129 Diastolic Measurement: 85 Screening for High Blood Pressure: < Pre-Hypertensive BP, F/U Documented > [G8950] Pre-Hypertensive Follow-up Interventions: Follow-up with rescreen every year.
[2018-12-10 14:06] LABS: ABSOLUTE NEUTROPHIL COUNT 5.79; BASO % 0.4 % (0-6); EOS % 0.4 % (0-6); GRAN % 78.1 % (47-80); HEMATOCRIT 29.2 % (35.0-47.0); HEMOGLOBIN 8.4 gm/dl (11.6-16.0); LYMPH % 7.7 % (16-45); MEAN CELL VOLUME 79.6 fl (81-97); MEAN CORPUSCULAR HGB CONC 28.8 g/dl (32-36); MEAN PLATELET VOLUME 10.3 fl (7.4-10.4); MONO % 13.4 % (0-9); PLATELET COUNT 335 K/uL (130-400); RED BLOOD COUNT 3.67 M/uL (3.80-5.40); WHITE BLOOD COUNT W/O DIFF 7.4 K/uL (4.2-12.2)
[2018-12-10 14:07] LABS: MEAN CORPUSCULAR HEMOGLOBIN 22.8 pg (27-33)
[2018-12-10 14:28] LABS: URINE APPEARANCE CLEAR; URINE BILIRUBIN NEGATIVE (NEGATIVE); URINE BLOOD NEGATIVE (NEGATIVE); URINE COLOR YELLOW; URINE GLUCOSE (UA) NEGATIVE (NEGATIVE); URINE KETONE NEGATIVE (NEGATIVE); URINE LEUKOCYTE ESTERASE NEGATIVE (NEGATIVE); URINE NITRITE NEGATIVE (NEGATIVE); URINE PROTEIN NEGATIVE (NEGATIVE); URINE UROBILINOGEN 0.2 E.U./dL (0.20 - 1.00)
[2018-12-10 14:28] LABS: BLOOD UREA NITROGEN 8 mg/dL (8-23); CREATININE 0.6 mg/dL (0.5-0.9); EST GLOMERULAR FILTRATION RATE > 60 mL/min
[2018-12-10 14:31] LABS: GLUCOSE,RANDOM 114 mg/dL (74-109)
== END 2018-12-10 15:12 | disposition home or self-care (01) ==
LOC: ER 12:14
DX: L03.113 Cellulitis of right upper limb (principal); R41.82 Altered mental status, unspecified; D64.9 Anemia, unspecified; J44.9 Chronic obstructive pulmonary disease, unspecified; I10 Essential (primary) hypertension; Z98.890 Other specified postprocedural states
CPT/HCPCS: 80048; 81003; 85025; 99284

== ENCOUNTER 2019-04-06 01:20 | Emergency (ER) | payer MEDICARE, MEDICAID ==
--- NOTE | 2019-04-06 01:29 | Emergency Department Record ---
History of Present Illness - General Chief Complaint: Fall Injury Stated Complaint: FALL Time Seen by Provider: 04/06/19 01:23 Source: Patient, EMS Mode of Arrival: EMS Limitations: No limitations - History of Present Illness Initial Comments: 69 yo female presents to ED for evaluation of headache following an unwitnessed fall that occurred prior to arrival. EMS reports that the patient may have "slipped from her chair onto the ground", reports mild pain to the head and neck. On further examination, patient reports left hip pain as well. Patient and EMS deny history of anticoagulation use at her baseline, patient denies pain or injury to the chest/abdomen/or back. MD Complaint: Fall -: Unknown Fall From: Chair When Fall Occurred: Unsure Fall Witnessed: No Place Fall Occurred: Home Loss of Consciousness: None Prolonged Down Time?: No Symptoms Prior to Fall: None Location: Head, Neck, Pelvis Severity: Moderate Quality: Aching - [place] Coma Scale Eye Response: (4) Open spontaneously Motor Response: (6) Obeys commands Verbal Response: (5) Oriented [place] Total: 15 - Related Data Allergies Allergy/AdvReac Type Severity Reaction Status Date / Time aspirin Allergy Unknown ANAPHYLAXIS Verified 04/06/19 01:27 clarithromycin Allergy Unknown ANAPHYLAXIS Verified 04/06/19 01:27 codeine Allergy Unknown ANAPHYLAXIS Verified 04/06/19 01:27 NSAIDS (Non-Steroidal Allergy Unknown ANAPHYLAXIS Verified 04/06/19 01:27 Anti-Inflamma Penicillins Allergy Unknown ANAPHYLAXIS Verified 04/06/19 01:27 Review of Systems Constitutional: Denies: Chills, Fever, Malaise, Night sweats Eyes: Denies: Eye discharge, Eye pain ENT: Denies: Congestion, Ear pain, Epistaxis Respiratory: Denies: Cough, Dyspnea Cardiovascular: Denies: Chest pain, Dyspnea on exertion Endocrine: Denies: Fatigue, Heat or cold intolerance Gastrointestinal: Denies: Abdominal pain, Nausea, Vomiting Genitourinary: Denies: Incontinence, Retention Musculoskeletal: Reports: Neck pain. Denies: Arthralgia, Back pain Skin: Denies: Bruising, Change in color Neurological: Reports: Headache. Denies: Abnormal gait, Confusion, Seizure Psychiatric: Denies: Anxiety Hematological/Lymphatic: Denies: Anemia, Blood Clots Past Medical History - SOCIAL HISTORY Smoking Status: Never smoker Drug Use: None - RESPIRATORY Hx Respiratory Disorders: Yes Hx Asthma: Yes Hx Bronchitis: Yes Hx COPD: Yes Hx Pneumonia: Yes - CARDIOVASCULAR Hx Cardio Disorders: Yes Hx Hypertension: Yes Comment:: heart murmur - NEURO Hx Neuro Disorders: No Hx Seizures: Yes (3 months ago.) - GI Hx GI Disorders: Yes Hx Hiatal Hernia: Yes - Hx Genitourinary Disorders: Yes Hx UTI: Yes - ENDOCRINE Hx Endocrine Disorders: No - MUSCULOSKELETAL Hx Musculoskeletal Disorders: Yes Hx Arthritis: Yes - PSYCH Hx Psych Problems: Yes Hx Anxiety: Yes Hx Depression: Yes - HEMATOLOGY/ONCOLOGY Hx Hematology/Oncology Disorders: No Hx Cancer: Yes Family Medical History Hx Heart Disease: Father, Mother, Brother/Sister Hx HTN: Mother Physical Exam - General General Appearance: Alert, Oriented x3, Cooperative, No acute distress Limitations: No limitations - Head Head exam: Atraumatic, Normocephalic, Normal inspection Head exam detail: negative: Abrasion, Contusion, Vargas's sign, General tenderness, Hematoma, Laceration - Eye Eye exam: Normal appearance. negative: Conjunctival injection, Periorbital swelling, Periorbital tenderness, Scleral icterus - ENT Ear exam: negative: Auricular hematoma, Auricular trauma Nasal Exam: negative: Active bleeding, Discharge, Dried blood, Foreign body Mouth exam: negative: Drooling, Laceration, Muffled voice, Tongue elevation - Neck Neck exam: Tenderness (Mild posterior tenderness to palpation mid-thoracic spine). negative: Meningismus - Respiratory Respiratory exam: Normal lung sounds bilaterally. negative: Rales, Respiratory distress, Rhonchi, Stridor - Cardiovascular Cardiovascular Exam: Regular rate, Normal rhythm, Normal heart sounds - GI/Abdominal GI/Abdominal exam: Soft. negative: Rebound, Rigid, Tenderness - Rectal Rectal exam: Deferred - exam: Deferred - Extremities Extremities exam: Tenderness (TTP over the lateral aspect of the left hip, hip flexion intact). negative: Calf tenderness, Pedal edema - Back Back exam: Denies: CVA tenderness (R), CVA tenderness (L) - Neurological Neurological exam: Alert, Normal gait, Oriented X3 - Psychiatric Psychiatric exam: Normal affect, Normal mood - Skin Skin exam: Normal color. negative: Abrasion Type of lesion: negative: abrasion Course - Reevaluation(s) Reevaluation #1: 04/06/19 03:05 CT Brain: No acute process CT Cervical Spine: Degenerative changes No acute fracture 16 mm left lung apex mass CT Pelvis: No acute process Patient was updated on all results, counseled re: follow-up with Dr. Farah for further evaluation of her lung lesion. Patient verbalizes understanding of all instructions, appears stable for discharge at this time. Disposition Disposition: Discharge Clinical Impression: Multiple contusions, Lesion of left lung Fall Qualifiers: Encounter type: initial encounter Qualified Code(s): W19.XXXA - Unspecified fall, initial encounter Disposition: Home, Self-Care Condition: (2) Stable Instructions: Fall Prevention for Older Adults (ED) Additional Instructions: Return to ED if your symptoms worsen or if you have any concerns. Follow-up with your family doctor in 3-5 days as directed re: mass left lung Tylenol as needed for pain symptoms. Forms: Patient Portal Access Time of Disposition: 06:53 Quality - Quality Measures Quality Measures: N/A - Blood Pressure Screening Does Patient Have Any of the Following: Active Dx of HTN Blood Pressure Classification: Hypertensive Reading Systolic Measurement: 150 Diastolic Measurement: 75 Screening for High Blood Pressure: Patient Exclusion, Hx of HTN [G9744]
--- NOTE | 2019-04-06 06:38 | CT SCAN REPORT ---
EXAMINATION: CT of the Pelvis without Intravenous Contrast. EXAM DATE: 04/06/2019 1:24 AM TECHNIQUE: A standard CT pelvis protocol was performed without intravenous contrast. Sagittal and cor onal images were reconstructed. INDICATION: fall, previous CVA COMPARISON: None ENCOUNTER: Not applicable FINDINGS: Ureters & Bladder: Both distal ureters have a normal caliber and the urinary bladder is unremarkable . Gastrointestinal: Included large and small bowel segments in the pelvis are unremarkable. The appendi x is not identified. Reproductive Organs: The uterus is absent. Lymphatic System: There is no adenopathy within the pelvis. Vasculature: Moderate atherosclerotic calcifications are present. The iliac arteries have a normal ca liber. Peritoneum: There is no free fluid within the pelvis. Retroperitoneum: There is no retroperitoneal mass, hemorrhage, or hematoma. Abdominal Wall & Musculoskeletal: No suspicious bone lesions. Prior left hip fracture fixation. Scatt ered degenerative changes. 3-D imaging: Not performed. IMPRESSION: No evidence of significant acute abnormalities. Dictated by: Deisi Walker MD on 04/06/2019 2:36 AM. .
--- NOTE | 2019-04-06 06:38 | CT SCAN REPORT ---
EXAMINATION: HEAD WO CONTRAST EXAM DATE: 04/06/2019 1:24 AM TECHNIQUE: Noncontrast axial images were obtained of the brain. Coronal and sagittal reformatted aayush ges were generated. INDICATION: fall, previous CVA COMPARISON: 10/10/2018. FINDINGS: The ventricular system is normal in size and morphology. The basal cisterns are patent and there is n o midline shift or herniation. Low-attenuation areas in the periventricular and subcortical white matter are nonspecific but may rep resent chronic microangiopathic change. The brain parenchyma is otherwise unremarkable. No loss of g ray-white matter differentiation or sulcal effacement to indicate acute infarction. Mild cerebral vo lume loss. No evidence of intracranial mass. No intra-axial or extra-axial fluid collection. The paranasal sinuses are unremarkable. The mastoid air cells are clear. The orbital structures are u nremarkable. The calvarium is intact. IMPRESSION: No evidence of acute intracranial abnormality. Dictated by: Deisi Walker MD on 04/06/2019 2:35 AM. .
--- NOTE | 2019-04-06 06:38 | CT SCAN REPORT ---
EXAMINATION: CT Cervical Spine without IV Contrast EXAM DATE: 04/06/2019 1:24 AM TECHNIQUE: Standard protocol cervical spine CT imaging was performed without intravenous contrast. Co isaiah and sagittal images were reconstructed. INDICATION: fall, previous CVA COMPARISON: Exams dating back to 07/28/2018 ENCOUNTER: Initial FINDINGS: Minimal anterolisthesis at C2-3, C3-4, C4-5 which is felt to be degenerative. Severe disc height loss at C5-6, C6-7, and C7-T1. Facet joints degenerative but normally aligned. Craniocervical junction an d odontoid intact. Spinal canal patent. Prevertebral tissues normal. Large thyroid mass on the left m easuring 4.7 cm. There is a 16 mm semisolid nodule in the left upper lobe (3:85) with a solid compone nt of 7 mm. IMPRESSION: 1. No acute process 2. There is a 16 mm semisolid nodule in the left apex with the solid component of 7 mm. This is highl y suspicious for malignancy 3. Degenerative changes in the cervical spine 4. Large left thyroid mass which has been present previously Dictated by: Donovan Hamilton DO on 04/06/2019 2:35 AM. .
== END 2019-04-06 03:15 | disposition home or self-care (01) ==
LOC: ER 01:20
DX: G89.11 Acute pain due to trauma (principal); R51 Headache; M54.6 Pain in thoracic spine; M25.552 Pain in left hip; M54.2 Cervicalgia; R91.1 Solitary pulmonary nodule; J44.9 Chronic obstructive pulmonary disease, unspecified; I10 Essential (primary) hypertension; W07.XXXA Fall from chair, initial encounter; Y92.129 Unspecified place in nursing home as the place of occurrence of the external cause; F17.290 Nicotine dependence, other tobacco product, uncomplicated
CPT/HCPCS: 70450; 72125; 72192; 99284

== ENCOUNTER 2019-04-23 22:04 | Emergency (ER) | payer MEDICARE, MEDICAID ==
--- NOTE | 2019-04-23 22:35 | Emergency Department Record ---
History of Present Illness - General Chief complaint: Lower Extremity Pain Stated complaint: LEG WEAKNESS Time Seen by Provider: 04/23/19 22:14 Source: Patient, EMS Mode of Arrival: Stretcher Limitations: No limitations - History of Present Illness Initial comments: Pt to ED tonight from local [facility] [place] with complaint of pain to the left lateral lower leg for one week. Worse to night. Pt walks with a walker and relates 'a couple falls recently, not today". As stated pain is in lateral lower left leg. There is no hip or ankle pain, no knee pain. Denies weakness to arms, change in speech or vision. 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 Walks with aid of a walker. No upper leg pains. No fall or injury today. No CP, REMI, fever. Onset/Timin -: Days(s) Location: Left History of Same: No Radiation: Distal Severity scale (1-10): 6 Quality: Aching, Dull Consistency: Constant Worsens with: Walking, Weight bearing - Related Data Allergies Allergy/AdvReac Type Severity Reaction Status Date / Time aspirin Allergy Unknown ANAPHYLAXIS Verified 04/23/19 22:21 clarithromycin Allergy Unknown ANAPHYLAXIS Verified 04/23/19 22:21 codeine Allergy Unknown ANAPHYLAXIS Verified 04/23/19 22:21 NSAIDS (Non-Steroidal Allergy Unknown ANAPHYLAXIS Verified 04/23/19 22:21 Anti-Inflamma Penicillins Allergy Unknown ANAPHYLAXIS Verified 04/23/19 22:21 Travel Screening - Travel/Exposure Within Last 30 Days Have you traveled within the last 30 days?: No - Travel/Exposure Within Last Year Have you traveled outside the [place] in the last year?: No - Additonal Travel Details Have you been exposed to anyone with a communicable illness?: No - Travel Symptoms Symptom Screening: None Review of Systems Constitutional: Denies: Chills, Fever, Weakness Eyes: Denies: Eye discharge ENT: Denies: Congestion Respiratory: Denies: Cough, Dyspnea Cardiovascular: Denies: Chest pain, Palpitations, Syncope Endocrine: Denies: Fatigue Gastrointestinal: Denies: Abdominal pain, Diarrhea, Nausea, Vomiting Genitourinary: Denies: Dysuria Musculoskeletal: Reports: As per HPI. Denies: Back pain Skin: Reports: Bruising (left lateral hip area) Neurological: Denies: Headache, Tremors Psychiatric: Denies: Anxiety Past Medical History - SOCIAL HISTORY Smoking Status: Never smoker Alcohol Use: None Drug Use: None Drug Use Detail:: Cocaine - RESPIRATORY Hx Respiratory Disorders: Yes Hx Asthma: Yes Hx Bronchitis: Yes Hx COPD: Yes Hx Pneumonia: Yes - CARDIOVASCULAR Hx Cardio Disorders: Yes Hx Hypertension: Yes Comment:: heart murmur - NEURO Hx Neuro Disorders: No Hx Seizures: Yes (3 months ago.) - GI Hx GI Disorders: Yes Hx Hiatal Hernia: Yes - Hx Genitourinary Disorders: Yes Hx UTI: Yes - ENDOCRINE Hx Endocrine Disorders: No - MUSCULOSKELETAL Hx Musculoskeletal Disorders: Yes Hx Arthritis: Yes - PSYCH Hx Psych Problems: Yes Hx Anxiety: Yes Hx Depression: Yes - HEMATOLOGY/ONCOLOGY Hx Hematology/Oncology Disorders: No Hx Cancer: Yes Family Medical History Any Significant Family History?: No Hx Heart Disease: Father, Mother, Brother/Sister Hx HTN: Mother Physical Exam - General General Appearance: Alert, Oriented x3, Cooperative, No acute distress - Head Head exam: Atraumatic Head exam detail: negative: Abrasion, Contusion, Vargas's sign - Eye Eye exam: Normal appearance, PERRL - ENT ENT exam: Mucous membranes moist, Normal orophraynx Ear exam: Normal external inspection Nasal Exam: Normal inspection - Neck Neck exam: Normal inspection, Full ROM. negative: Tenderness - Respiratory Respiratory exam: Normal lung sounds bilaterally. negative: Respiratory distress - Cardiovascular Cardiovascular Exam: Regular rate, Normal rhythm - GI/Abdominal GI/Abdominal exam: Soft, Normal bowel sounds. negative: Distended, Guarding, Tenderness - Extremities Extremities exam: Tenderness (left lateral prox 1/3 fibula. No skin bruising, swelling, erythema noted. No palpable meass. No left knee effusion, no upper thigh tenderness or swelling noted. Pt dies have an area of echymosis over the left lateral hip that apperas a few days old. No pain on motion of bilateral hips rolling to internal and external motion. No pain on pelvic rock. ) - Back Back exam: Denies: Normal inspection, Paraspinal tenderness - Neurological Neurological exam: Alert, Oriented X3, Other (moves ext x4 with good motor tone to resistance. LE with tone 4/5 bilateral, flex/ext at ankle and toe with 4/5 bilateral. ) - Psychiatric Psychiatric exam: Normal affect, Normal mood - Skin Skin exam: negative: Cyanosis, Rash Course Vital Signs 04/23/19 22:08 Temperature 98.6 F Pulse Rate 60 Respiratory 16 Rate Blood Pressure 112/61 Pulse Ox 96 - Reevaluation(s) Reevaluation #1: 04/23/19 22:43 Exam and XRays done. No evidence of fracture. No clinical suspicion of DVT. Discussed with patient and she is in agreement with home. Pt takes Percocet 7.5 TID and prn for her pains. Discussed concern for these meds and falling as they are sedating. Pt is aware but wants to continue her meds. Disposition Disposition: Discharge Clinical Impression: Pain in left lower leg Disposition: Home, Self-Care Condition: (1) Good Instructions: Leg Pain (ED) Additional Instructions: Continue care. CAUTION with sedating pain medications and hx of recent fall. Ice locally to left leg for pain. Family doctor re eval in 3-5 days Return to the ED as needed. Forms: Patient Portal Access Time of Disposition: 22:47 Quality - Quality Measures Quality Measures: N/A - Blood Pressure Screening Does Patient Have Any of the Following: No, Active Dx of HTN Blood Pressure Classification: Normal BP Reading Systolic Measurement: 112 Diastolic Measurement: 61 Screening for High Blood Pressure: < Normal BP, F/U Not Required > [G8783]
--- NOTE | 2019-04-23 23:02 | RADIOLOGY REPORT ---
EXAMINATION: Left Hip Minimum Two Views EXAM DATE: 04/23/2019 10:40 PM TECHNIQUE: AP pelvis and left frog leg lateral hip views INDICATION: pain/fall COMPARISON: 05/24/2018 ENCOUNTER: Initial FINDINGS: Intramedullary adama and hip screw are unchanged. Old proximal femur fracture is unchanged. There is no evidence of hardware failure or acute fracture. There is no dislocation. There is moderate joint spa ce narrowing and acetabular spurring in both hips. IMPRESSION: No acute process Dictated by: Donovan Hamilton DO on 04/23/2019 10:55 PM. .
--- NOTE | 2019-04-23 23:03 | RADIOLOGY REPORT ---
EXAMINATION: Left Tibia and Fibula, Two View EXAM DATE: 04/23/2019 10:40 PM TECHNIQUE: AP and lateral INDICATION: pain COMPARISON: None. ENCOUNTER: Initial FINDINGS: Soft tissue reticulations are noted of the lower leg which may be secondary to edema. No acute osseou s abnormalities are noted. Partial visualization of hardware is seen in the femoral shaft. IMPRESSION: 1. Possible soft tissue swelling. 2. No evidence of acute fractures or dislocations. Dictated by: Deisi Walker MD on 04/23/2019 10:57 PM. .
== END 2019-04-24 00:13 | disposition home or self-care (01) ==
LOC: ER 22:04
DX: S70.12XA Contusion of left thigh, initial encounter (principal); M79.662 Pain in left lower leg; R29.898 Other symptoms and signs involving the musculoskeletal system; I69.341 Monoplegia of lower limb following cerebral infarction affecting right dominant side; I10 Essential (primary) hypertension; J44.9 Chronic obstructive pulmonary disease, unspecified; W19.XXXA Unspecified fall, initial encounter
CPT/HCPCS: 99284